=== PATIENT | male | born 2000 | race Hispanic/Latino ===

== ENCOUNTER 2021-01-27 21:49 | Emergency (ER) | payer SELFPAY ==
[~2021-01-27] VITALS: Ht 180.3 cm; Wt 113.4 kg
[2021-01-28 00:11] VITALS: BP 102/78
== END 2021-01-28 00:12 | disposition home or self-care (01) ==
LOC: ER 22:03
DX: R07.89 Other chest pain (principal); R42 Dizziness and giddiness
CPT/HCPCS: 71045; 93005; 99284

== ENCOUNTER 2024-12-18 16:28 | Emergency (ER) | payer OTHER ==
[~2024-12-18] VITALS: Ht 177.8 cm; Wt 136.2 kg
[2024-12-18] MEDS ORDERED: CYCLOBENZAPRINE5 MG PO (17:09)
[2024-12-18] MEDS ORDERED: IOPAMIDOL 370 MG/ML 100 ML INFUS..BTL INJ ONE (17:16)
[2024-12-18] MEDS ORDERED: FAMOTIDINE 20 MG/2 ML VIAL IV ONE (17:30)
[2024-12-18] MEDS ORDERED: ONDANSETRON HCL INJ 2MG/ML 2ML 2 MG/ML VIAL ONE (17:30)
[2024-12-18] MEDS ORDERED: AMOX TR-K CLV1 EAC2 PO (19:31)
[2024-12-18] MEDS ORDERED: ONDANSETRON ODT4 MG PO (19:31)
[2024-12-18 19:41] VITALS: PULSE 86; RESP 16; TEMP 98.6; O2SAT 97
[2024-12-18] MEDS: KETOROLAC TROMETHAMINE 30 MG/ML VIAL IV STA (19:51)
[2024-12-18] MEDS: FAMOTIDINE 20 MG/2 ML VIAL IV STA (19:52)
[2024-12-18] MEDS: ONDANSETRON HCL INJ 2MG/ML 2ML 2 MG/ML VIAL IV STA (19:52)
[2024-12-18] MEDS: SODIUM CHLORIDE 0.9% 1000ML 1,000 ML IV ONE (19:52)
[2024-12-18] MEDS: AMOXICILLIN/CLAVULANATE K 875 MG TAB PO STA (19:55)
== END 2024-12-18 19:41 | disposition home or self-care (01) ==
LOC: FSED 16:35
DX: R11.2 Nausea with vomiting, unspecified (principal); B34.9 Viral infection, unspecified; H66.92 Otitis media, unspecified, left ear; M54.9 Dorsalgia, unspecified; G89.29 Other chronic pain; R53.81 Other malaise
CPT/HCPCS: 71046; 74177; 80048; 80076; 81003; 83518; 83880; 84484; 85025; 96374; 96375; 99284; J1308; J1885; J2405; J7030; Q9967

== ENCOUNTER 2024-12-20 22:08 | Inpatient (IN) | payer OTHER ==
[~2024-12-20] VITALS: Ht 177.8 cm; Wt 134.3 kg
[~2024-12-20 22:08] MED LIST: AMOX TR-K CLV1 EAC2 PO; CYCLOBENZAPRINE5 MG PO; ONDANSETRON ODT4 MG PO
[2024-12-20 22:32] VITALS: PULSE 83; RESP 18; TEMP 98.3
[2024-12-21] VITALS (7 sets, daily range): BP systolic 115–132; BP diastolic 69–73; PULSE 55–81; RESP 16–21; TEMP 97.6–98.6; O2SAT 98–100
[2024-12-21] MEDS: DEXAMETHASONE SOD PHOS INJ 4 MG/ML SDV IV ONE (00:10)
[2024-12-21] MEDS: FAMOTIDINE 20 MG/2 ML VIAL IV STA (00:10)
[2024-12-21] MEDS: SODIUM CHLORIDE 0.9% 1000ML 1,000 ML IV ONE (00:10)
[2024-12-21] MEDS: DIPHENHYDRAMINE HCL INJ 50 MG/ML VIAL IV ONE (00:10)
[2024-12-21] MEDS ORDERED: IOPAMIDOL 370 MG/ML 100 ML INFUS..BTL INJ ONE (00:34)
[2024-12-21] MEDS ORDERED: IBUPROFEN 600 MG TAB PO PRN (02:00)
[2024-12-21] MEDS ORDERED: ONDANSETRON HCL INJ 2MG/ML 2ML 2 MG/ML VIAL IV PRN (02:00)
[2024-12-21] MEDS ORDERED: Morphine 2mg Syringe 2 MG/ML SYR IV PRN (02:00)
[2024-12-21] MEDS: SODIUM CHLORIDE 0.9% 1000ML 1,000 ML IV SCH (03:39)
[2024-12-21] MEDS ORDERED: CELEBREX200 MG PO (03:56)
[2024-12-21] MEDS ORDERED: ACETAMINOPHEN 325 MG TAB PO PRN (10:00)
[2024-12-21] MEDS ORDERED: MAGNESIUM/ALUMINUM/SIMETHICONE 30 ML UDC PO PRN (11:15)
[2024-12-21 12:56] LABS: BASOPHILS % 0.9 % (0.0-1.0); EOSINOPHILS % 0.0 % (0.0-6.0); LYMPHOCYTES % 48.7 % (18.0-39.1); MONOCYTES % 3.4 % (4.4-11.3); NEUTROPHILS % 47.0 % (38.7-80.0); RED CELL DISTRIBUTION WIDTH 12.9 % (11.7-14.4)
[2024-12-21 13:23] LABS: EST GLOMERULAR FILTRATION RATE 127.0 ML/MIN (>=60)
[2024-12-21] MEDS: FAMOTIDINE 20 MG TAB PO SCH (13:49)
[2024-12-21 14:39] LABS: BAND NEUTROPHILS % (MANUAL) 1 %; LYMPHOCYTES % (MANUAL) 23 % (19-48); MONOCYTES % (MANUAL) 10 % (3.4-9.0); NEUTROPHILS % (MANUAL) 55 % (40-74); PLATELET ESTIMATE MARKEDLY DECREASED; REACTIVE LYMPHOCYTES 11
[2024-12-21 14:40] LABS: PLATELET MORPHOLOGY COMMENT NORMAL; RBC MORPHOLOGY COMMENT NORMAL
[2024-12-21] MEDS: METRONIDAZOLE 500MG/NS 100ML 100 ML IV SCH (21:40)
[2024-12-22] VITALS (7 sets, daily range): BP systolic 111–132; BP diastolic 63–75; PULSE 59–76; RESP 18–20; TEMP 97.4–98.3; O2SAT 98–99
[2024-12-22 06:32] LABS: BASOPHILS % 1.2 % (0.0-1.0); EOSINOPHILS % 0.5 % (0.0-6.0); LYMPHOCYTES % 40.1 % (18.0-39.1); MONOCYTES % 7.2 % (4.4-11.3); NEUTROPHILS % 50.8 % (38.7-80.0); RED CELL DISTRIBUTION WIDTH 12.9 % (11.7-14.4)
[2024-12-22 07:05] LABS: EST GLOMERULAR FILTRATION RATE 125.0 ML/MIN (>=60)
[2024-12-22] MEDS: CIPROFLOXACIN 400 MG/D5W 200ML 200 ML IV SCH (11:44)
[2024-12-22 12:05] LABS: LYMPHOCYTES % (MANUAL) 18 % (19-48); MONOCYTES % (MANUAL) 9 % (3.4-9.0); NEUTROPHILS % (MANUAL) 54 % (40-74); REACTIVE LYMPHOCYTES 6
[2024-12-22 12:06] LABS: BAND NEUTROPHILS % (MANUAL) 10 %; BLAST CELLS % MANUAL 1; METAMYELOCYTES % (MANUAL) 1 % (0-0); MYELOCYTES % (MANUAL) 1 % (0-0)
[2024-12-22 12:07] LABS: PLATELET ESTIMATE MODERATELY DECREASED; PLATELET MORPHOLOGY COMMENT NORMAL; RBC MORPHOLOGY COMMENT NORMAL
[2024-12-23] VITALS (7 sets, daily range): BP systolic 113–134; BP diastolic 65–74; PULSE 60–82; RESP 18–20; TEMP 97.8–98.7; O2SAT 96–100
[2024-12-23 05:46] LABS: BASOPHILS % 0.5 % (0.0-1.0); EOSINOPHILS % 1.2 % (0.0-6.0); LYMPHOCYTES % 42.5 % (18.0-39.1); MONOCYTES % 7.1 % (4.4-11.3); NEUTROPHILS % 48.5 % (38.7-80.0); RED CELL DISTRIBUTION WIDTH 13.2 % (11.7-14.4)
[2024-12-23 06:17] LABS: EST GLOMERULAR FILTRATION RATE 124.0 ML/MIN (>=60)
[2024-12-23] MEDS: HYDROCORTISONE 1% CREAM 30 GM TUBE TOP PRN (10:25)
[2024-12-23 10:40] LABS: EOSINOPHILS % (MANUAL) 3 % (0-7); LYMPHOCYTES % (MANUAL) 31 % (19-48); MONOCYTES % (MANUAL) 11 % (3.4-9.0); NEUTROPHILS % (MANUAL) 50 % (40-74); REACTIVE LYMPHOCYTES 5
[2024-12-23 10:41] LABS: PLATELET ESTIMATE MODERATELY DECREASED; PLATELET MORPHOLOGY COMMENT NORMAL; RBC MORPHOLOGY COMMENT NORMAL
[2024-12-23] MEDS: FAMOTIDINE 20 MG/2 ML VIAL IV SCH (12:37)
[2024-12-23] MEDS: DIPHENHYDRAMINE HCL INJ 50 MG/ML VIAL IV ONE (12:37)
[2024-12-23] MEDS: LORATADINE 10 MG TAB PO SCH (12:38)
[2024-12-24] VITALS: BP 136/62; PULSE 77; RESP 20; TEMP 98.7; O2SAT 95
[2024-12-24 04:00] VITALS: BP 155/64; PULSE 82; RESP 20; TEMP 99; O2SAT 99
[2024-12-24 05:29] LABS: BASOPHILS % 0.5 % (0.0-1.0); EOSINOPHILS % 1.4 % (0.0-6.0); LYMPHOCYTES % 44.6 % (18.0-39.1); MONOCYTES % 8.8 % (4.4-11.3); NEUTROPHILS % 43.5 % (38.7-80.0); RED CELL DISTRIBUTION WIDTH 13.2 % (11.7-14.4)
[2024-12-24 06:01] LABS: EST GLOMERULAR FILTRATION RATE 124.0 ML/MIN (>=60)
[2024-12-24 08:00] VITALS: BP 125/71; PULSE 88; RESP 18; TEMP 98.6; O2SAT 99
[2024-12-24 09:19] LABS: EOSINOPHILS % (MANUAL) 2 % (0-7); LYMPHOCYTES % (MANUAL) 46 % (19-48); MONOCYTES % (MANUAL) 4 % (3.4-9.0); NEUTROPHILS % (MANUAL) 48 % (40-74)
[2024-12-24 09:20] LABS: PLATELET ESTIMATE SLIGHTLY DECREASED; PLATELET MORPHOLOGY COMMENT NORMAL; RBC MORPHOLOGY COMMENT NORMAL
[2024-12-24 10:55] LABS: HEPATITIS A ANTIBODY IGM (P) NEGATIVE; HEPATITIS B SURFACE AG (P) NEGATIVE
[2024-12-24 10:56] LABS: HEPATITIS B CORE IGM (P) NEGATIVE
[2024-12-24 12:00] VITALS: BP 129/78; PULSE 81; RESP 20; TEMP 97.9; O2SAT 98
== END 2024-12-24 14:10 | disposition home or self-care (01) | DRG 371 ==
LOC: FSED 22:59 → ERHOLD 12-21 01:55 → MED/SURG2 12-21 03:23 → OBSVTOIN 12-21 11:18 → MED/SURG2 12-22 15:31
PROVIDERS: ADMIT Internal Medicine; ATTEND Internal Medicine
DX: A04.9 Bacterial intestinal infection, unspecified (principal); K72.00 Acute and subacute hepatic failure without coma; Z68.41 Body mass index [BMI] 40.0-44.9, adult; E66.9 Obesity, unspecified; D69.6 Thrombocytopenia, unspecified; D72.819 Decreased white blood cell count, unspecified; E86.0 Dehydration; K76.0 Fatty (change of) liver, not elsewhere classified; D75.9 Disease of blood and blood-forming organs, unspecified; R74.01 Elevation of levels of liver transaminase levels; T78.40XA Allergy, unspecified, initial encounter; T36.95XA Adverse effect of unspecified systemic antibiotic, initial encounter
CPT/HCPCS: 36415; 74177; 80053; 80076; 81003; 83518; 83630; 83993; 85025; 86308; 87045; 87177; 94799; 96374; 96375; 99284; J1100; J1200; J1308; J7030; Q9967

== ENCOUNTER → 2025-01-15 | Outpatient (REF) | payer OTHER ==
[~2025-01-15] MED LIST changes: +CELEBREX200 MG PO
== END ==
LOC: MERGE 09:39 → US 09:39
PROVIDERS: ATTEND Nurse Practitioner
DX: R74.8 Abnormal levels of other serum enzymes (principal); K76.0 Fatty (change of) liver, not elsewhere classified
CPT/HCPCS: 76700